=== PATIENT | female | born 1980 | race African-American/Black ===

== ENCOUNTER 2017-02-09 14:16 | Emergency (ER) | payer OTHER ==
[2017-02-09 16:08] VITALS: BP 151/98
== END 2017-02-09 16:08 | disposition home or self-care (01) ==
LOC: ED 14:16
DX: R10.2 Pelvic and perineal pain (principal); I10 Essential (primary) hypertension; E11.9 Type 2 diabetes mellitus without complications; K62.89 Other specified diseases of anus and rectum; Z79.899 Other long term (current) drug therapy; Z88.5 Allergy status to narcotic agent